=== PATIENT | female | born 1950 | race Caucasian/White ===

== ENCOUNTER 2020-01-08 16:43 | Inpatient (IN) | payer OTHER ==
[~2020-01-08] VITALS: Ht 154.9 cm; Wt 56.7 kg
[~2020-01-08 16:43] MED LIST: GABAPENTIN 100100 MG; LEVAQUIN 750 M750 MG PO; PREDNISONE 10 M10 MG PO; PRILOSEC OTC20 MG PO; SULFASALAZINE500 M4 PO; ZYRTEC10 MG PO
[2020-01-08 16:44] VITALS: BP 123/81
[2020-01-08 17:40] LABS: ABSOLUTE LYMPHOCYTES 0.8 thou/uL (0.8-5.3); ABSOLUTE MONOCYTES 0.4 thou/uL (0.0-1.2); ABSOLUTE NEUTROPHILS 5.8 thou/uL (1.6-8.1); BASOPHILS 0.5 %; HEMATOCRIT 31.4 % (37.0-47.0); HEMOGLOBIN 10.2 gm/dL (12.0-15.0); LYMPHOCYTES 10.9 %; MCH 28.6 pg (26.0-34.0); MCHC 32.4 g/dL (28.0-37.0); MONOCYTES 6.2 %; MPV 7.6 fl. (7.2-11.1); NUCLEATED RBCS 0 /100WBC; PLATELET COUNT* 330 thou/uL (150-400); POLYS 82.4 %; RBC 3.57 mil/uL (4.20-5.00); RDW-CV 15.8 % (10.5-14.5)
[2020-01-08 17:46] LABS: APTT 25.4 Seconds (25.0-31.3); PROTIME 10.6 Seconds (9.20-11.50)
[2020-01-08 17:47] LABS: CALCIUM 8.5 mg/dL (8.5-10.1); POTASSIUM 3.5 mmol/L (3.5-5.1)
[2020-01-08 17:52] LABS: ALBUMIN 3.5 g/dL (3.4-5.0); TOTAL BILIRUBIN 0.3 mg/dL (<0.1-1.0); TOTAL PROTEIN 7.1 g/dL (6.4-8.2)
[2020-01-08 22:05] VITALS: BP 104/70
[2020-01-08 22:20] VITALS: BP 130/85
[2020-01-08] MEDS ORDERED: PEPCID40 MG PO (23:40)
[2020-01-08] MEDS ORDERED: AZULFIDINE500 MG PO (23:40)
[2020-01-08] MEDS ORDERED: COSENTYX P150 MG/11 IM (23:43)
[2020-01-08] MEDS ORDERED: FLONASE 0.05%50 MCG NASAL (23:44)
[2020-01-08] MEDS ORDERED: FLOVENT HFA 4444 MCG INH (23:46)
[2020-01-08] MEDS ORDERED: PROAIR HFA8.5 GM INH (23:47)
[2020-01-08] MEDS ORDERED: ALBUTEROL (23:49)
[2020-01-09] VITALS (7 sets, daily range): BP systolic 96–122; BP diastolic 46–73
--- NOTE | 2020-01-09 04:47 | NUR ---
PATIENT ARRIVED TO UNIT AT 2220 BY BED WITH WATKINS'S TRACTION (10 POUNDS) TO LLE. VITAL SIGNS STABLE AT ARRIVAL WITH O2 ON AT 2L/MIN. BILAT PEDAL PULSES AND SENSATION INTACT. MEDICATED FOR PAIN AT 0100 AND WITHIN THE HOUR FOLLOWING SHE BEGAN HAVING EXCRUCIATING SPASMS. DR. CASANOVA NOTIFIED AND ONE TIME ORDER FOR VALIUM RECEIVED. THIS WAS GIVEN TO MIXED RESULTS. HELPED WITH SPASMS FOR 2 HOURS BUT O2 NEEDS TEMPORARILY INCREASED. CONTINUOUS OXIMITRY UTILIZED DURING THE FIRST 2 HOURS. CURRENTLY BACK TO BASELINE WITH PAIN MEDICATION LAST PROVIDED AT 0340. NPO AT MIDNIGHT. ADMISSION AND PRE-OP ROUTINES IN PROGRESS. CONTINUE TO MONITOR.
--- NOTE | 2020-01-09 10:39 | EKG ---
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 : 1950 Requested By: Ana Jaquez Order Number: [id number] MD: Claudio Schulz Measurements Intervals [place] Rate: 90 P: 75 PA: 130 QRS: 37 QRSD: 81 T: 79 QT: 377 QTc: 462 Interpretive Statements Sinus rhythm Low voltage, precordial leads Compared to ECG 10/16/2014 14:33:13 Low QRS voltage now present Sinus tachycardia no longer present Electronically Signed On 01-09-2020 10:37:59 CDT by Claudio Schulz [email or web address] <ELECTRONICALLY SIGNED> By: Claudio Schulz MD, FACC 01/09/20 1037 1720 1720 Claudio Schulz MD, FAC /EPI
--- NOTE | 2020-01-09 16:41 | NUR ---
CM ATTEMPTED TO MEET WITH THE PATIENT TO DISCUSS DISCHARGE PLANNING AND DPOA. PT OUT OF RROM HAVING PROCEDURE DONE. CM TO F/U WITH PT AT ANOTHER TIME.
[2020-01-09 21:35] LABS: ABSOLUTE LYMPHOCYTES 0.7 thou/uL (0.8-5.3); ABSOLUTE MONOCYTES 1.4 thou/uL (0.0-1.2); ABSOLUTE NEUTROPHILS 9.1 thou/uL (1.6-8.1); BASOPHILS 0.3 %; HEMATOCRIT 24.3 % (37.0-47.0); LYMPHOCYTES 6.5 %; MCH 27.9 pg (26.0-34.0); MCHC 31.3 g/dL (28.0-37.0); MCV 89.3 fL (80.0-100.0); MONOCYTES 12.1 %; MPV 7.6 fl. (7.2-11.1); NUCLEATED RBCS 0 /100WBC; PLATELET COUNT* 317 thou/uL (150-400); POLYS 81.1 %; RBC 2.72 mil/uL (4.20-5.00); RDW-CV 15.4 % (10.5-14.5); WBC 11.2 thou/uL (4.0-11.0)
[2020-01-09 21:36] LABS: HEMOGLOBIN 7.6 gm/dL (12.0-15.0)
[2020-01-09 21:42] LABS: ALBUMIN 2.6 g/dL (3.4-5.0); CALCIUM 8.1 mg/dL (8.5-10.1); CREATININE 1.1 mg/dL (0.6-1.3); POTASSIUM 4.6 mmol/L (3.5-5.1); TOTAL BILIRUBIN 0.3 mg/dL (<0.1-1.0); TOTAL PROTEIN 5.7 g/dL (6.4-8.2)
[2020-01-10] VITALS (7 sets, daily range): BP systolic 101–132; BP diastolic 57–95
--- NOTE | 2020-01-10 01:36 | OP ---
[facility] [place] [place] [address] OPERATIVE REPORT Name: LIOR REDDY Room: [address] IN .R.#: [id number] Admission: 01/08/20 Attend Phys: Demarco Malcolm Discharge: Date of : 48 Report #: [id number] THIS REPORT FOR: //name// cc: Physician not on staff Physician not on staff THIS REPORT FOR: //name// CC: RODO Nair Physician staff DATE OF SERVICE: 01/09/2020 PREOPERATIVE DIAGNOSIS: Left subtrochanteric femur fracture. POSTOPERATIVE DIAGNOSIS: Left subtrochanteric femur fracture. PROCEDURE: Open reduction and internal fixation of left subtrochanteric femur fracture. SURGEON: Alex Cobos DO ASSISTANTS: 1. Galen Romero DO 2. Woody Hussein DO ANESTHESIA: General. ANTIBIOTICS: Ancef IV. FLUIDS: 1100 mL lactated Ringer's. BLOOD LOSS: 400 mL. COMPLICATIONS: None. SPECIMENS: None. DRAINS: None. CONDITION OF PATIENT: Stable to PACU. IMPLANTS: Oxana gamma nail 10 x 360 x 130 degree nail with 95 mm lag screw, 2 distal interlock screws 5 x 47.5 mm. The most distal screw placed in the dynamic position. [facility] [place] [place] [address] OPERATIVE REPORT Name: LIOR REDDY Room: [address]#: [id number] Admission: 01/08/20 Attend Phys: Demarco Malcolm Discharge: Date of : 48 Report #: [id number] INDICATIONS FOR PROCEDURE: The patient admitted to [facility] with a subtrochanteric femur fracture. Consultation requested. My partner was originally on-call. He asked I take over care due to complexity of the case and my fracture training. I went over with the patient and her son the imaging, exam findings, diagnosis, treatment options, plan of surgery with indications and risks and complications. They acknowledged, accepted and gave consent to proceed. DESCRIPTION OF PROCEDURE: I marked the left lower extremity in the presence of the operative team members. Everyone agreed this was correct. She was taken back to the operative suite, briefing performed indicating correct patient, procedure, site, antibiotics and that implants were present and sterile. All team members agreed. General anesthetic administered. She was transferred over to the operative table in supine position, well-padded and secured. Fracture table utilized, brought in C-arm, overall got an appropriate length established, but quite a lot of displacement as this was expected due to its subtrochanteric nature. Left lower extremity was sterilely prepped and draped in standard fashion. Time-out performed indicating correct patient, procedure, site, antibiotics and that implants were present and sterile. All team members agreed. Marked out our incisions. We began by opening the fracture site as this would require the open reduction. Scalpel through skin, dissection down to the IT band, incised and carefully dissected down to the fracture site, protecting muscle and vascularity. We were able to reduce the fracture, get a clamp. We judged rotation based off of where it keyed in. There was a little bit of lateral beaking if this is what was expected with her hypophosphatemia versus long-term prednisone and osteoporosis. She has no evidence of any pathology or lytic lesion. Clamped the fracture. Confirmed on multiplanar C-arm imaging that it was appropriate, made an incision proximal to greater trochanter. Maintained hemostasis as dissection down to trochanter, placed a guidewire into the appropriate position for starting point, advanced and then reamed over. Ball-tipped guidewire placed, checked its position distally and then measured approximately for 360 mm. A final 10 x 360 mm x 130 degree nail was thrown onto the back table and assembled the external aiming guide. We reamed while holding the fracture, reduced with a clamp. With a 12.5 mm reamer, inserted the nail over the guidewire. This did not cause any displacement of the fracture. We were able to place a double sleeve for lag screw placement. Through our already open incision, placed the guidewire up into the femoral neck and head in appropriate position as confirmed on multiplanar C-arm imaging measured for a 95 mm lag screw. We therefore reamed appropriately. Final 95 lag screw thrown onto the back table and implanted appropriately, engaged the set screw locked in static position as this was a subtrochanteric femur fracture, let go of clamps, confirmed that the reduction was appropriate and we had lined up based off of our cortical margins. We also confirmed that the external rotation of the foot was matching the amount of external rotation of the proximal fragment. We removed the external aiming guide. Final C-arm images proximally showed excellent reduction and placement of hardware. We [address] [place] [address] OPERATIVE REPORT Name: VIA,LIOR D Room: [address] IN [facility].#: [id number] Admission: 01/08/20 Attend Phys: Demarco Malcolm Discharge: Date of : 48 Report #: [id number] turned our attention distally without changing any other rotation as this was subtrochanteric. We performed perfect [place] technique, made incisions, drilled, measured and placed 2 appropriately sized screws. The most distal screw was placed into a dynamic position as this is a transverse fracture. All hardware was in place. Final C-arm images taken and saved. We irrigated all incisions with normal saline. Deep layers were reapproximated with 0 Vicryl [id number] interrupted. Subcutaneous closed with 2-0 Monocryl buried deep. Skin was stapled. Debriefing performed confirming procedure, blood loss and that all counts were correct and final. All team members agreed. Sterile silver-impregnated bandage is applied. She was taken off of the fracture table to her bed in supine position, leaving her intubated. We checked her natural length and external rotation which was appropriate and equal to the other side. We then flexed the hip up and checked internal and external rotation about the hip, which was equal. Therefore, rotation was appropriate. She was extubated and taken to PACU stable. POSTOPERATIVE COURSE AND EVALUATION: I spoke with her son per her wishes, addressed questions he had to her stated satisfaction. He was very thankful for my time and effort. She was resting in PACU, stable vital signs, pain controlled, neurovascularly intact. Compartments soft and compressible. Negative Homans sign. PACU films showed stable internal fixation and fracture reduction. Weightbear as tolerated. PT, OT, Case Management to help with discharge planning. DVT prophylaxis will be pharmacological with Eliquis and mechanical with Yandel Jade and mobilization. I encouraged medical nursing staff. The patient and her family to call anytime with questions or concerns. I reviewed the postoperative orders and plan with the residents and initiated the orders personally. It should be noted that I will not be on-call this weekend. My partner, Dr. Carias, as I went over this case with her specifically and signed out and I will be immediately available by phone if need be. <ELECTRONICALLY SIGNED> By: Alex Cobos DO 01/10/20 0136 [id number] Cobos DO /nt
--- NOTE | 2020-01-10 01:37 | NUR ---
ASSUMED CARE OF PT 01/08/10 AT APPROX 1915, PT RECENTLY BACK FROM OR, RESPIRATIONS DEPRESSED, PT APPEARED SEDATED, AT 1955 RESP 7, PT CONTINUED TO APPEAR SEDATED, ABLE TO AWAKE AND TAKE ORAL MEDICATION, CONTINUOUS PULSE OX HAVING DIFFICULTY MONITORING, PHYSICIAN NOTIED AND UPDATED SEVERAL TIMES, CHEST XRAYS AND LABS ORDERED, RT NOTIFIED, NARCAN ORDERED AND GIVEN, PER PHYSICIAN VERBAL ORDER - TO INCREASE MONITORING D/T POSSIBLE SIDE EFFECTS OF PAIN MEDS PT TRANSFERED TO TELEMETRY. REPORT GIVEN TO GENEVIEVE FUNG AND PT TRANSERED TO AT 6525. CALL MADE TO [place], NO ANSWER, INFORMATION OF TRANSFER LEFT ON VOICE RECORDER.
--- NOTE | 2020-01-10 05:21 | NUR ---
PT RECIEVED FROM ORTHO IN ROOM 213. C/O PAIN AND NAUSEA, MEDICATION GIVEN PER EMAR. ALERT AND ORIENTED X4. SURGICAL SITE C/D/I. CALL LIGHT WITHIN REACH AND BED IN LOW POSITION. HOURLY ROUNDING DONE FOR PT SAFETY.
[2020-01-10 05:52] LABS: ABSOLUTE LYMPHOCYTES 1.1 thou/uL (0.8-5.3); BASOPHILS 0.2 %; RBC 2.41 mil/uL (4.20-5.00); WBC 7.4 thou/uL (4.0-11.0)
[2020-01-10 06:01] LABS: ABSOLUTE MONOCYTES 1.2 thou/uL (0.0-1.2); ABSOLUTE NEUTROPHILS 5.1 thou/uL (1.6-8.1); ALBUMIN 2.4 g/dL (3.4-5.0); CALCIUM 8.1 mg/dL (8.5-10.1); HEMATOCRIT 21.3 % (37.0-47.0); LYMPHOCYTES 14.4 %; MCH 28.5 pg (26.0-34.0); MCHC 32.2 g/dL (28.0-37.0); MCV 88.6 fL (80.0-100.0); MONOCYTES 16.4 %; NUCLEATED RBCS 0 /100WBC; PLATELET COUNT* 253 thou/uL (150-400); POTASSIUM 4.8 mmol/L (3.5-5.1); RDW-CV 15.7 % (10.5-14.5); TOTAL BILIRUBIN 0.2 mg/dL (<0.1-1.0); TOTAL PROTEIN 5.5 g/dL (6.4-8.2)
[2020-01-10 06:03] LABS: HEMOGLOBIN 6.9 gm/dL (12.0-15.0)
--- NOTE | 2020-01-10 14:46 | NUR ---
PT 100% ON 3L PER NC - TURNED DOWN TO 2L PER NC, O2 SATS REMAIN AT 100% AT THIS TIME. WCTM AND TITRATE OFF ABLE
--- NOTE | 2020-01-10 19:53 | NUR ---
RECEIVED REPORT FROM KENTON VALLEJO. ASSUMED CARE OF PT AROUND 0730. PT A&O X4, BUT DROWSY. AWAKENS EASILY. VITALS AND AM ASSESSMENT COMPLETED CHARTED. 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 AWARE OF TACHYCRADIA. PT RECEIVED PO PAIN MEDICATION THIS SHIFT FOR REPORT FOR PAIN IN LEFT LEG/HIP - PARTIAL RELEIF OBTAINBED. PT UNALBE TO GET OUT OF BED WITH P.T. THIS SHIFT - TOO TACHY AND BP A LITTLE SOFT. PT TOLERATING DIET. MEDS PER EMAR. JACOME IN PLACE TO DD. ICE APPLIED TO LEFT LE INCISION SITE. CONTINUOUS PULSE OX IN PLACE. 1 UNIT PRBCS TRANSFUSED THIS SHIFT - H&H TO BE REDRAWN THIS EVENING. PT VISITED WITH FAMILY ON THE PHONE YARITZA. PT CURRENTLY RESTING IN BED. CALL LIGHT IS WITHIN REACH, HOURLY ROUNDING PERFORMED. FALL PRECAUTIONS IN PLACE.
[2020-01-10 22:21] LABS: HEMOGLOBIN 8.2 gm/dL (12.0-15.0)
[2020-01-11] VITALS: BP 152/82
[2020-01-11 04:00] VITALS: BP 112/54
[2020-01-11 04:33] LABS: HEMATOCRIT 23.6 % (37.0-47.0); MCH 29.4 pg (26.0-34.0); MCHC 33.8 g/dL (28.0-37.0); MPV 7.8 fl. (7.2-11.1); RBC 2.71 mil/uL (4.20-5.00); RDW-CV 15.6 % (10.5-14.5); WBC 6.9 thou/uL (4.0-11.0)
[2020-01-11 04:48] LABS: ALBUMIN 2.3 g/dL (3.4-5.0); CREATININE 0.8 mg/dL (0.6-1.3); POTASSIUM 4.4 mmol/L (3.5-5.1)
--- NOTE | 2020-01-11 06:18 | NUR ---
PATIENT SLEPT MOST OF THE NIGHT. IV FLUIDS CONTINUE TO INFUSE AT 50 ML/HR. DRESSING TO LEFT HIP REMAINS INTACT. PATIENT WAS GIVEN PAIN MEDICINE THREE TIMES THIS SHIFT. WILL CONTINUE TO MONITOR.
[2020-01-11 08:30] VITALS: BP 113/75
[2020-01-11 12:00] VITALS: BP 109/54
[2020-01-11 16:00] VITALS: BP 106/60
--- NOTE | 2020-01-11 17:33 | NUR ---
ASSUMED CARE OF PT APPROX 0730. REASSESSMENT COMPLETED CHARTED MEDICATIONS GIVEN CHARTED. PT UP TO BEDSIDE CHAIR WITH THERAPY THIS AM, PT BACK TO BED WITH THERAPY AFTER LUNCH. PT CALLS OUT FOR NEEDS. SAFTEY PRECAUTIONS UTILIZED. HOURLY ROUNDING. TELE MONITORING.
[2020-01-11 20:10] VITALS: BP 117/63
[2020-01-12] VITALS: BP 133/66
[2020-01-12 03:58] LABS: HEMATOCRIT 22.1 % (37.0-47.0); HEMOGLOBIN 7.4 gm/dL (12.0-15.0); MCH 28.9 pg (26.0-34.0); MCHC 33.3 g/dL (28.0-37.0); MCV 86.6 fL (80.0-100.0); MPV 7.4 fl. (7.2-11.1); RBC 2.56 mil/uL (4.20-5.00); RDW-CV 15.5 % (10.5-14.5); WBC 7.2 thou/uL (4.0-11.0)
[2020-01-12 04:10] LABS: ALBUMIN 2.1 g/dL (3.4-5.0); CALCIUM 7.7 mg/dL (8.5-10.1); CREATININE 0.7 mg/dL (0.6-1.3); POTASSIUM 3.7 mmol/L (3.5-5.1)
[2020-01-12 04:13] VITALS: BP 139/71
--- NOTE | 2020-01-12 05:08 | NUR ---
PATIENT PROGRESSING TOWARDS GOALS: PATIENT'S PAIN MANAGED WITH ICE PACK AND PO MEDICATION. PATIENT RESTING WELL THIS SHIFT. JACOME REMAINS IN PLACE TO DD. CALL LIGHT WITHIN REACH
[2020-01-12 08:21] VITALS: BP 119/78
[2020-01-12 11:30] LABS: URINE BILIRUBIN NEGATIVE (Negative); URINE BLOOD 3+ (Negative); URINE CLARITY CLEAR; URINE COLOR YELLOW; URINE GLUCOSE-RANDOM NEGATIVE (Negative); URINE KETONES NEGATIVE (Negative); URINE LEUKOCYTES NEGATIVE (Negative); URINE NITRITE NEGATIVE (Negative); URINE PROTEIN NEGATIVE (Negative); URINE SPECIFIC GRAVITY <= 1.005 (1.005-1.030); URINE UROBILINOGEN 0.2 E.U./dl (0.2-1.0)
[2020-01-12 11:48] LABS: SQUAMOUS NONE SEEN /LPF (0-3)
[2020-01-12 11:49] LABS: BACTERIA None Seen /HPF (None Seen); CASTS None Seen /LPF (None Seen); CRYSTALS None Seen /LPF (None Seen); MUCUS None Seen strn/LPF (None Seen); URINE RBC 0-2 Rare /HPF (0-2); URINE WBC None Seen /HPF (0-5)
[2020-01-12 11:54] VITALS: BP 113/50; BP 124/65; BP 127/59; BP 140/75; BP 142/70
[2020-01-12 13:25] VITALS: BP 122/56
--- NOTE | 2020-01-12 13:57 | NUR ---
Pt is A&O. Resides at home with son, Alex, and is normally active and independent. Pt slipped on a spill at home and fell. No DME. No hx of HH or SNF. CM spoke with Alex, informed that Pt will need SNF at dc, son in agreement and requested that referral be sent to [facility]. CM spoke with Kallie at [facility] and confirmed that they have skilled beds available. Faxed referral. CM requested that they initiate insurance auth if able to accept, awaiting decision to accept. Following.
[2020-01-12 17:32] LABS: HEMATOCRIT 27.8 % (37.0-47.0)
--- NOTE | 2020-01-12 17:34 | NUR ---
PT A&Ox4. VITALS STABLE. IV PATENT. 1 UNIT OF BLOOD INFUSED. UP WITH 1 USING GB AND WALKER. PT HAVING MUSCLE SPASMS, FLEXERIL GIVEN. FALL PRECAUTIONS IN PLACE. CALL LIGHT WITHIN REACH. WILL CONTINUE TO MONTIOR.
[2020-01-12 17:39] LABS: HEMOGLOBIN 9.5 gm/dL (12.0-15.0)
[2020-01-12 20:20] VITALS: BP 156/82
[2020-01-13 00:38] VITALS: BP 127/64
[2020-01-13 04:42] LABS: HEMATOCRIT 28.6 % (37.0-47.0); HEMOGLOBIN 9.9 gm/dL (12.0-15.0); MCH 30.5 pg (26.0-34.0); MCHC 34.6 g/dL (28.0-37.0); MCV 88.2 fL (80.0-100.0); MPV 7.6 fl. (7.2-11.1); RBC 3.24 mil/uL (4.20-5.00); RDW-CV 15.6 % (10.5-14.5); WBC 6.6 thou/uL (4.0-11.0)
[2020-01-13 04:59] VITALS: BP 141/88
--- NOTE | 2020-01-13 04:59 | NUR ---
PATIENT PARTIALLY PROGRESSING TOWARDS GOALS: PAIN MANAGED WITH COMBINATION OF COLD, RELAXATION, REPOSITIONING, AND ORAL MEDICATIONS. PATIENT ABLE TO AMBULATE WITH ASSIST OF ONE TO BEDSIDE COMMODE. CALL LIGHT WITHIN REACH
[2020-01-13 05:00] LABS: CALCIUM 7.9 mg/dL (8.5-10.1); CREATININE 0.6 mg/dL (0.6-1.3); POTASSIUM 3.8 mmol/L (3.5-5.1)
[2020-01-13 07:50] VITALS: BP 128/65
--- NOTE | 2020-01-13 08:28 | NUR ---
[facility] can clinic[facility] accept Pt for skilled, submitted for insurance auth yesterday.
[2020-01-13 11:31] VITALS: BP 128/65
[2020-01-13] MEDS ORDERED: NORCO 5-325 TA1 EAC1 PO (11:40)
[2020-01-13] MEDS ORDERED: ELIQUIS2.5 MG PO (11:40)
[2020-01-13 12:07] VITALS: BP 124/64
--- NOTE | 2020-01-13 14:51 | NUR ---
Pt discharging to [facility] skilled today, facility to garbage pick up worker at 3pm. Updated son. Faxed dc orders. Chart copied. Nurse report number is [phone]
--- NOTE | 2020-01-13 15:27 | NUR ---
ASSUMED CARE OF PATIENT AT APPROX 0730. ALERT AND ORIENTED X4. ASSESSMENT COMPLETED AND CHARTED. VSS ON ROOM AIR. PAIN MANAGED WITH ORAL NORCO AND FLEXERIL. NO OTHER COMPLAINTS. MEPILEX DRESSING ON LEFT HIP/THIGH SATURATED, CHANGED AND REPLACED WITH NEW MEPILEX. PATIENT DISCHARGED AT 1520 WITH ALL PERSONAL BELONGINGS AND DISCHARGE PACKET. TRANSPORTED TO FACILITY VIA WHEELCHAIR VAN. REPORT GIVEN TO RN AT FACILITY.
== END 2020-01-13 15:20 | DRG 480 ==
LOC: M.ERS 16:43 → M.2W 18:29 → M.TBA-ER 18:29 → M.ORTHSURG 18:29 → M.2W 01-09 23:47
PROVIDERS: Internal Medicine; Personal Emergency Response Attendant; ADMIT Internal Medicine
PROC: 0QS706Z Reposition Left Upper Femur with Intramedullary Internal Fixation Device, Open Approach (ICD-10-PCS; principal; 2020-01-09)
PROC: 30233N1 Transfusion of Nonautologous Red Blood Cells into Peripheral Vein, Percutaneous Approach (ICD-10-PCS; 2020-01-10)
DX: S72.22XA Displaced subtrochanteric fracture of left femur, initial encounter for closed fracture (principal); E43 Unspecified severe protein-calorie malnutrition; D62 Acute posthemorrhagic anemia; M45.9 Ankylosing spondylitis of unspecified sites in spine; W18.39XA Other fall on same level, initial encounter; F41.9 Anxiety disorder, unspecified; M19.90 Unspecified osteoarthritis, unspecified site; J45.909 Unspecified asthma, uncomplicated; K21.9 Gastro-esophageal reflux disease without esophagitis; G62.9 Polyneuropathy, unspecified; Z68.23 Body mass index [BMI] 23.0-23.9, adult; Z79.899 Other long term (current) drug therapy; Z88.5 Allergy status to narcotic agent; Z91.048 Other nonmedicinal substance allergy status; Y93.89 Activity, other specified; Y92.090 Kitchen in other non-institutional residence as the place of occurrence of the external cause; Y99.8 Other external cause status; Z83.3 Family history of diabetes mellitus; Z82.49 Family history of ischemic heart disease and other diseases of the circulatory system

== ENCOUNTER → 2020-02-17 | Outpatient (CLI) | payer OTHER ==
[~2020-02-17] MED LIST changes: +ALBUTEROL; +AZULFIDINE500 MG PO; +COSENTYX P150 MG/11 IM; +ELIQUIS2.5 MG PO; +FLONASE 0.05%50 MCG NASAL; +FLOVENT HFA 4444 MCG INH; +NORCO 5-325 TA1 EAC1 PO; +PEPCID40 MG PO; +PROAIR HFA8.5 GM INH
== END ==
LOC: M.LAB 11:14
DX: E55.9 Vitamin D deficiency, unspecified (principal)

== ENCOUNTER → 2020-03-19 | Outpatient (CLI) | payer OTHER | LOC: M.LAB 13:57 | DX: E55.9 Vitamin D deficiency, unspecified (principal) ==